=== PATIENT | male | born 1955 | race Caucasian/White ===

== ENCOUNTER 2016-09-25 16:08 | Emergency (ER) | payer OTHER ==
[~2016-09-25] VITALS: Ht 190.5 cm; Wt 108.8 kg
[2016-09-25] MEDS ORDERED: LISINOPRIL20 MG PO (18:47)
[2016-09-25] MEDS ORDERED: ZYRTEC10 MG PO (18:47)
== END 2016-09-25 18:45 | disposition short-term general hospital (02) ==
LOC: ER 16:08
DX: I48.91 Unspecified atrial fibrillation (principal); M19.90 Unspecified osteoarthritis, unspecified site; I10 Essential (primary) hypertension; Z79.899 Other long term (current) drug therapy
CPT/HCPCS: J1650

== ENCOUNTER → 2016-10-10 | Outpatient (CLI) | payer OTHER ==
[~2016-10-10] MED LIST: LISINOPRIL20 MG PO; ZYRTEC10 MG PO
== END | disposition short-term general hospital (02) ==
LOC: CLCARD 08:54
DX: I48.91 Unspecified atrial fibrillation (principal); I10 Essential (primary) hypertension; R51 Headache; I49.9 Cardiac arrhythmia, unspecified

== ENCOUNTER → 2016-10-17 | Outpatient (CLI) | payer OTHER | END | disposition short-term general hospital (02) | LOC: CLCARD 10:25 | DX: I48.0 Paroxysmal atrial fibrillation (principal); I10 Essential (primary) hypertension; R51 Headache ==

== ENCOUNTER 2016-10-23 16:27 | Emergency (ER) | payer OTHER ==
[~2016-10-23] VITALS: Ht 190.5 cm; Wt 111.1 kg
== END 2016-10-23 18:15 | disposition short-term general hospital (02) ==
LOC: ER 16:27
DX: R00.0 Tachycardia, unspecified (principal); R00.2 Palpitations; I10 Essential (primary) hypertension; M19.90 Unspecified osteoarthritis, unspecified site; Z79.899 Other long term (current) drug therapy; Z98.890 Other specified postprocedural states

== ENCOUNTER 2016-11-18 07:30 | Day surgery (SDC) | payer OTHER ==
[~2016-11-18] VITALS: Ht 190.5 cm; Wt 111.1 kg
== END 2016-11-18 13:00 | disposition short-term general hospital (02) ==
LOC: SURGOP 07:30
PROC: 0YU60KZ Supplement Left Inguinal Region with Nonautologous Tissue Substitute, Open Approach (ICD-10-PCS; principal; 2016-11-18)
DX: K40.90 Unilateral inguinal hernia, without obstruction or gangrene, not specified as recurrent (principal); D17.6 Benign lipomatous neoplasm of spermatic cord; I10 Essential (primary) hypertension; I48.91 Unspecified atrial fibrillation; E66.9 Obesity, unspecified; Z68.31 Body mass index [BMI] 31.0-31.9, adult; Z79.82 Long term (current) use of aspirin; Z79.899 Other long term (current) drug therapy
CPT/HCPCS: J0131; J0690; J1885; J2250; J3010